=== PATIENT | male | born 1980 | race Caucasian/White ===

== ENCOUNTER 2017-05-26 19:39 | Inpatient (IN) | payer MEDICAID ==
--- NOTE | 2017-05-26 19:53 | EDPHY ---
H & P Stated Complaint: pt c/o pain/redness/swelling in R distal leg, thinks he's had a fever HPI/ROS: HPI CHIEF COMPLAINT: [ ] HISTORY OF PRESENT ILLNESS: [Need 4: Location, Duration, Severity, Quality, Context, Timing Modifying Factors, Associated S&S] Past Medical History: Past Surgical History: Social History: Family History: ROS REVIEW OF SYSTEMS: A comprehensive 10 point review of systems is otherwise negative aside from elements mentioned in the history of present illness. Exam Constitutional triage nursing summary reviewed, vital signs reviewed, awake/ alert. Eyes normal conjunctivae and sclera, EOMI, PERRLA. HENT normal inspection, atraumatic, moist mucus membranes, no epistaxis, neck supple/ no meningismus, no raccoon eyes. Respiratory clear to auscultation bilaterally, normal breath sounds, no respiratory distress, no wheezing. Cardiovascular rate normal, regular rhythm, no murmur, no edema, distal pulses normal. Gastrointestinal soft, non-tender, no rebound, no guarding, normal bowel sounds, no distension, no pulsatile mass. Genitourinary no CVA tenderness. Musculoskeletal no midline vertebral tenderness, full range of motion, no calf swelling, no tenderness of extremities, no meningismus, good pulses, neurovascularly intact. Skin pink, warm, & dry, no rash, skin atraumatic. Neurologic awake, alert and oriented x 3, AAOx3, moves all 4 extremities equally, motor intact, sensory intact, CN II-XII intact, normal cerebellar, normal vision, normal speech. Psychiatric normal mood/affect. Heme/Lymph/Immune no lymphadenopathy. Differential Diagnosis: Medical Decision Making: Re-evaluation: Source: Patient - Medical/Surgical History Hx Asthma: No Hx Chronic Respiratory Disease: No Hx Diabetes: No Hx Cardiac Disease: No Hx Renal Disease: No Hx Cirrhosis: No Hx Alcoholism: No Hx HIV/AIDS: No Hx Splenectomy or Spleen Trauma: No Other PMH: CELLULITIS, OCD, orif RLE, adenoidectomy, nasal surg, tbi - Social History Smoking Status: Never smoked Constitutional: Initial Vital Signs Temperature (C) 38.1 C 05/26/17 19:42 Heart Rate 124 H 05/26/17 19:42 Respiratory Rate 18 05/26/17 19:42 Blood Pressure 118/78 05/26/17 19:42 O2 Sat (%) 93 05/26/17 19:42 O2 Delivery Mode Room Air Allergies/Adverse Reactions: [facility] Allergy (Verified 05/26/17 19:48) Home Medications: Medication Instructions Recorded Latuda 06/07/15 Sertraline HCl 06/07/15 Departure - Departure Referrals: ROMÁN LANDAVERDE [Other] - As per Instructions
[2017-05-26] MEDS ORDERED: VANCOMYCIN HCL/NORMAL SALINE 250 ML IV ONE (20:04)
[2017-05-26] MEDS ORDERED: NS 3,900 ML IV ONE (20:12)
--- NOTE | 2017-05-26 20:12 | EDPHY ---
H & P Stated Complaint: pt c/o pain/redness/swelling in R distal leg, thinks he's had a fever - Medical/Surgical History Hx Asthma: No Hx Chronic Respiratory Disease: No Hx Diabetes: No Hx Cardiac Disease: No Hx Renal Disease: No Hx Cirrhosis: No Hx Alcoholism: No Hx HIV/AIDS: No Hx Splenectomy or Spleen Trauma: No Other PMH: CELLULITIS, OCD, orif RLE, adenoidectomy, nasal surg, tbi - Social History Smoking Status: Never smoked Time Seen by Provider: 05/26/17 19:54 HPI/ROS: CHIEF COMPLAINT: Right pretibial erythema HISTORY OF PRESENT ILLNESS: 37-year-old male arrives via private vehicle complaining of less than 24 hours of new onset right pretibial erythema, concerns over cellulitis. He has a medical history significant for tibial plateau ORIF in 2007 secondary to skiing accident. Starting in 2012 he has developed recurrent episodes of cellulitis to the right pretibial region. He was admitted in 2012 in a hospital in [place] for cellulitis. On 04/23/2017 he had hardware removed from his right tibia and fibula by Dr. Jung Durán, [facility], however notes that there is a single screw still in place.. Tetanus up-to-date He is complaining of subjective fever and flu-like symptoms. He denies: Nausea, vomiting, chest pain, back pain, crepitus, inguinal pain PRIMARY CARE PROVIDER:Dr Michael, [facility] Winston REVIEW OF SYSTEMS: A ten point review of systems was performed and is negative with the exception of the items mentioned in the HPI PAST MEDICAL & SURGICAL HISTORY: 04/23/2017 right pretibial ORIF removal SOCIAL HISTORY: nonsmoker. PHYSICAL EXAM (Prior to examination, patient consented to physical exam, hands were washed and my usual and customary physical exam procedures followed) 1) GENERAL: Well-developed, well-nourished, alert and oriented. Appears to be in no acute distress. breath appears nontoxic 2) HEAD: Normocephalic, atraumatic 3) HEENT: Pupils equal, round, reactive to light bilaterally. Sclera anicteric. Nasopharynx, oropharynx, clear, no lesions. Ears bilaterally with normal tympanic membranes. 4) NECK: Full range of motion, no meningeal signs. 5) LUNGS: Clear auscultation bilaterally, no wheezes, no rhonchi, no retractions. 6) HEART: Regular rate and rhythm, no murmur, no heave, no gallop. 7) ABDOMEN: No guarding, no rebound, no focal tenderness, negative McBurney's, negative Werner's, negative Rovsing's, negative peritoneal sign, 8) MUSCULOSKELETAL: Right lower extremity: Beefy red erythema and induration pretibial region. Multiple surgical scars noted. No crepitus. No inguinal adenopathy. No lymphangitic streaking. Distal DP PT pulses present and brisk. 9) BACK: No CVA tenderness, no midline vertebral tenderness, no fluctuance, no step-off, no obvious trauma, no visual or palpable abnormality. 10) SKIN: No rash, no petechiae. 11) Psychiatric: Patient is oriented X 3, there is no agitation. DIFFERENTIAL DIAGNOSIS: in no particular include but limited to cellulitis, abscess, necrotizing fasciitis, infected hardware (Ronald Cancino) Constitutional: Initial Vital Signs Temperature (C) 38.1 C 05/26/17 19:42 Heart Rate 124 H 05/26/17 19:42 Respiratory Rate 18 05/26/17 19:42 Blood Pressure 118/78 05/26/17 19:42 O2 Sat (%) 93 05/26/17 19:42 O2 Delivery Mode Room Air Allergies/Adverse Reactions: cefaclor [From Ceclor] Allergy (Unknown, Verified 05/26/17 21:03) Rash Home Medications: Medication Instructions Recorded Lurasidone HCl [Latuda] 60 mg PO HS 05/26/17 Sertraline HCl [Zoloft 100mg (*)] 150 mg PO HS 05/26/17 Medical Decision Making ED Course/Re-evaluation: 8:12 p.m.: Discussed case Dr. Joaquin Gibbons in the ER. Plan will be diagnostic studies including ultrasound, imaging, lactate, blood cultures. He has a cephalosporin allergy and notes history of chronic skin infections to this area. He will be started on vancomycin. 8:29 p.m.: Consultation with hospitalist Dr. Irene will admit patient for right pretibial cellulitis. (Ronald Cancino) - Data Points Laboratory Results: Laboratory Results 05/26/17 20:05 05/26/17 20:05 Medications Given: Discontinued Medications Acetaminophen (Tylenol) 1,000 mg PO EDNOW ONE Stop: 05/26/17 20:40 Last Admin: 05/26/17 20:52 Dose: 1,000 mg Vancomycin/Sodium Chloride (Vancomycin 1 Gm (Premix)) 250 mls @ 250 mls/hr IV EDNOW ONE PRN Reason: Protocol Stop: 05/26/17 21:03 Last Admin: 05/26/17 20:33 Dose: 250 mls Sodium Chloride (Ns) 1,000 mls @ 0 mls/hr IV ONCE ONE PRN Reason: Wide Open Stop: 05/26/17 20:14 Last Admin: 05/26/17 20:18 Dose: 1,000 mls Sodium Chloride (Ns) 1,000 mls @ 250 mls/hr IV ONCE ONE Stop: 05/27/17 02:43 Last Admin: 05/26/17 23:23 Dose: 1,000 mls Departure - Departure Disposition: [facility] Inpatient Acute Clinical Impression: Right pretibial cellulitis Condition: Fair
[2017-05-26] MEDS ORDERED: NS 1,000 ML IV ONE ×2 (20:13→22:44)
[2017-05-26 20:25] LABS: % IMMATURE GRANULYOCYTES 0.7 % (0.0-1.1); ABSOLUTE IMMATURE GRANULOCYTES 0.17 10^3/uL (0.00-0.10); ADD DIFF? NO; ADD MORPH? NO; ADD SCAN? NO; ATYPICAL LYMPHOCYTE FLAG 0 (0-99); FRAGMENT RBC FLAG 0 (0-99); HEMATOCRIT 45.5 % (40.0-51.0); HEMOGLOBIN 15.2 g/dL (13.7-17.5); LEFT SHIFT FLG 0 (0-99); LIPEMIA HEMOLYSIS FLAG 80 (0-99); MEAN CELL HEMOGLOBIN 26.7 pg (27.9-34.1); MEAN CELL HEMOGLOBIN CONCENTR. 33.4 g/dL (32.4-36.7); MEAN PLATELET VOLUME 9.8 fL (8.7-11.7); PLATELET CLUMPS FLAG 0 (0-99); PLATELET COUNT 194 10^3/uL (150-400); RED BLOOD CELL COUNT 5.69 10^6/uL (4.40-6.38)
[2017-05-26 20:34] LABS: ANION GAP 14 mEq/L (8-16); BILIRUBIN,TOTAL 0.9 mg/dL (0.1-1.4); CALCIUM 9.6 mg/dL (8.5-10.4); CARBON DIOXIDE 21 mEq/l (22-31); CHLORIDE 98 mEq/L (97-110); CREATININE 1.2 mg/dL (0.7-1.3); GLOMERULAR FILTRATION RATE > 60; GLUCOSE 128 mg/dL (70-100); POTASSIUM 4.3 mEq/L (3.5-5.2); SODIUM 133 mEq/L (134-144)
[2017-05-26 20:35] LABS: INR 1.14 (0.83-1.16); PROTIME(PATIENT) 14.5 SEC (12.0-15.0)
[2017-05-26 20:36] LABS: APTT 28.7 SEC (23.0-38.0)
[2017-05-26] MEDS ORDERED: ACETAMINOPHEN 500 MG TAB PO ONE (20:39)
[2017-05-26] MEDS ORDERED: ONDANSETRON DISINTEGRATING 4 MG TAB PO PRN (22:44)
[2017-05-26] MEDS ORDERED: ONDANSETRON 4 MG/2 ML VIAL IVP PRN (22:44)
[2017-05-26] MEDS: LURASIDONE HCL 20 MG TAB PO SCH (23:29)
[2017-05-26] MEDS: SERTRALINE HCL 100 MG TAB PO SCH (23:30)
[2017-05-27] MEDS: ACETAMINOPHEN 325 MG TAB PO PRN ×2 (00:05→04:02)
--- NOTE | 2017-05-27 01:14 | PDGENHP ---
History and Physical - Chief Complaint Leg redness - History of Present Illness 37 yo M w/ hx of OCD presenting with RLE redness. Patient had a tib/fib fx in 2007 necessitating hardware placement. Over the last few years, he has developed cellulitis of the RLE every 3-6 months. Today he presents with redness , warmth, and pain overlying the right oneill, in the same distribution where his cellulitis typically occurs. His symptoms started on the day of presentation with rapid development of skin changes, fever, and malaise. Due to multiple recurrences, he had the RLE hardware removed at [facility] on . He denies trauma, insect bites, excoriations, and skin picking in the affected leg. He denies hx of immunodeficiency in himself of his family. History Information - Allergies/Home Medication List Allergies/Adverse Reactions: cefaclor [From Ceclor] Allergy (Unknown, Verified 05/26/17 21:03) Rash Home Medications: Lurasidone HCl [Latuda] 60 mg PO HS 05/26/17 [Last Taken 05/25/17] Sertraline HCl [Zoloft 100mg (*)] 150 mg PO HS 05/26/17 [Last Taken 05/25/17] I have personally reviewed and updated: family history, medical history - Past Medical History Additional medical history: OCD, multiple bouts of RLE cellulitis - Surgical History Additional surgical history: R tib/fib hardware removal 04/23/17 - Family History Positive for: CAD Additional family history: Denies family hx of immunodeficiency - Social History Smoking Status: Never smoked Alcohol Use: None Drug Use: None Review of Systems ROS: 10pt was reviewed & negative except for what was stated in HPI & below Physical Exam Temp Pulse Resp BP Pulse Ox 37.6 C 104 H 16 122/71 H 94 05/26/17 23:25 05/26/17 23:25 05/26/17 23:25 05/26/17 23:25 05/26/17 23:25 Constitutional: no apparent distress, not in pain Eyes: PERRL, EOMI Ears, Nose, Mouth, Throat: moist mucous membranes, no oral mucosal ulcers Cardiovascular: regular rate and rhythym, no murmur, rub, or gallop Respiratory: no respiratory distress, clear to auscultation Gastrointestinal: normoactive bowel sounds, soft, non-tender abdomen Skin: warm, erythema (Large area of erythema overlying RLE; well healed surgical incisions noted on several areas of RLE) Musculoskeletal: full muscle strength Neurologic: AAOx3, CN II-XII Intact Psychiatric: interacting appropriately, not anxious Lab Data & Imaging Review 05/26/17 20:05 05/26/17 20:05 WBC 23.30 10^3/uL (3.80-9.50) H 05/26/17 20:05 RBC 5.69 10^6/uL (4.40-6.38) 05/26/17 20:05 Hgb 15.2 g/dL (13.7-17.5) 05/26/17 20:05 Hct 45.5 % (40.0-51.0) 05/26/17 20:05 MCV 80.0 fL (81.5-99.8) L 05/26/17 20:05 MCH 26.7 pg (27.9-34.1) L 05/26/17 20:05 MCHC 33.4 g/dL (32.4-36.7) 05/26/17 20:05 RDW 13.0 % (11.5-15.2) 05/26/17 20:05 Plt Count 194 10^3/uL (150-400) 05/26/17 20:05 MPV 9.8 fL (8.7-11.7) 05/26/17 20:05 Neut % (Auto) 91.9 % (39.3-74.2) H 05/26/17 20:05 Lymph % (Auto) 3.4 % (15.0-45.0) L 05/26/17 20:05 [place] % (Auto) 3.8 % (4.5-13.0) L 05/26/17 20:05 Eos % (Auto) 0.0 % (0.6-7.6) L 05/26/17 20:05 Baso % (Auto) 0.2 % (0.3-1.7) L 05/26/17 20:05 Nucleat RBC Rel Count 0.0 % (0.0-0.2) 05/26/17 20:05 Absolute Neuts (auto) 21.41 10^3/uL (1.70-6.50) H 05/26/17 20:05 Absolute Lymphs (auto) 0.79 10^3/uL (1.00-3.00) L 05/26/17 20:05 Absolute Monos (auto) 0.88 10^3/uL (0.30-0.80) H 05/26/17 20:05 Absolute Eos (auto) 0.00 10^3/uL (0.03-0.40) L 05/26/17 20:05 Absolute Basos (auto) 0.05 10^3/uL (0.02-0.10) 05/26/17 20:05 Absolute Nucleated RBC 0.00 10^3/uL (0-0.01) 05/26/17 20:05 Immature Gran % 0.7 % (0.0-1.1) 05/26/17 20:05 Immature Gran # 0.17 10^3/uL (0.00-0.10) H 05/26/17 20:05 PT 14.5 SEC (12.0-15.0) 05/26/17 20:05 INR 1.14 (0.83-1.16) 05/26/17 20:05 APTT 28.7 SEC (23.0-38.0) 05/26/17 20:05 VBG Lactic Acid 1.8 mmol/L (0.7-2.1) 05/26/17 20:05 Sodium 133 mEq/L (134-144) L 05/26/17 20:05 Potassium 4.3 mEq/L (3.5-5.2) 05/26/17 20:05 Chloride 98 mEq/L (97-110) 05/26/17 20:05 Carbon Dioxide 21 mEq/l (22-31) L 05/26/17 20:05 Anion Gap 14 mEq/L (8-16) 05/26/17 20:05 BUN 19 mg/dL (7-23) 05/26/17 20:05 Creatinine 1.2 mg/dL (0.7-1.3) 05/26/17 20:05 Estimated GFR > 60 05/26/17 20:05 Glucose 128 mg/dL (70-100) H 05/26/17 20:05 Calcium 9.6 mg/dL (8.5-10.4) 05/26/17 20:05 Total Bilirubin 0.9 mg/dL (0.1-1.4) 05/26/17 20:05 Imaging Review: RLE U/S notable for sub-cutaneous fluid collection. XR tib/fib without clear acute pathology. Assessment & Plan Assessment: 37 yo M w/ hx of OCD and multiple bouts of RLE cellulitis again presenting with sepsis 2/2 RLE cellulitis. Plan: 1. Sepsis 2/2 RLE cellulitis - 3/4 SIRS (T 39, WBC 21, HR 120) with clearly infected RLE. Patient had hardware removed at [facility] in April noting multiple prior bouts of similar infections. Per patient, culture from hardware did not grow any organisms. U/S notable for fluid collection, XR without definite acute osseous changes. He denies personal or family hx of immunodeficiency. - Borders of infection marked - Vancomycin IV, IVF PRN; may broaden coverage if not clearly improving - ID Consult placed - MRI RLE ordered to evaluate fluid collection and osseous structures - May need surgical consultation pending results of MRI - Blood cultures ordered 2. OCD - Continue home Latuda and sertraline Diet - NPO pending results of MRI in case he needs surgical intervention Ppx - SQH, can hold dose prior to procedure if necessary Code - Full Dispo - Admit to inpatient noting sepsis and complicated cellulitis
[2017-05-27] MEDS: VANCOMYCIN 1.25 GM in D5W 250 ML IV SCH ×3 (05:33→20:42)
[2017-05-27] MEDS: HEPARIN 5,000 UNIT/0.5 ML SYR SC SCH ×3 (05:39→21:48)
[2017-05-27 06:08] LABS: % IMMATURE GRANULYOCYTES 0.7 % (0.0-1.1); ABSOLUTE IMMATURE GRANULOCYTES 0.09 10^3/uL (0.00-0.10); ADD DIFF? NO; ADD MORPH? NO; ADD SCAN? NO; ATYPICAL LYMPHOCYTE FLAG 0 (0-99); FRAGMENT RBC FLAG 0 (0-99); HEMATOCRIT 39.6 % (40.0-51.0); HEMOGLOBIN 13.1 g/dL (13.7-17.5); LEFT SHIFT FLG 0 (0-99); LIPEMIA HEMOLYSIS FLAG 80 (0-99); MEAN CELL HEMOGLOBIN 26.8 pg (27.9-34.1); MEAN CELL HEMOGLOBIN CONCENTR. 33.1 g/dL (32.4-36.7); MEAN CELL VOLUME 81.1 fL (81.5-99.8); MEAN PLATELET VOLUME 9.9 fL (8.7-11.7); PLATELET CLUMPS FLAG 0 (0-99); PLATELET COUNT 142 10^3/uL (150-400); RED BLOOD CELL COUNT 4.88 10^6/uL (4.40-6.38); RED CELL DISTRIBUTION WIDTH 13.2 % (11.5-15.2)
[2017-05-27 06:25] LABS: ANION GAP 8 mEq/L (8-16); CALCIUM 8.5 mg/dL (8.5-10.4); CARBON DIOXIDE 23 mEq/l (22-31); CHLORIDE 103 mEq/L (97-110); GLOMERULAR FILTRATION RATE > 60; GLUCOSE 105 mg/dL (70-100); SODIUM 134 mEq/L (134-144)
[2017-05-27] MEDS ORDERED: GADOBUTROL 10 ML VIAL IVP ONE (12:27)
[2017-05-27] MEDS: CLINDAMYCIN 600 MG/DEXTROSE 50 ML IV SCH ×2 (15:48→22:45)
--- NOTE | 2017-05-27 16:01 | GCON ---
[f rep st] CONSULTATION INFECTIOUS DISEASE CONSULTATION DATE OF CONSULTATION: 05/27/2017 REFERRING PHYSICIAN: Roberto Escalante MD REASON FOR CONSULTATION: Right lower extremity cellulitis. CHIEF COMPLAINT: Red leg. HISTORY OF PRESENT ILLNESS: This is a 37-year-old, male with a past medical history of OC D and recurrent right lower extremity cellulitis. He developed sudden onset of acute redness involv ing the right lower extremity as of yesterday. He actually was not feeling well since Sunday with s ome fevers, mild chills, and a lot of myalgias. He did not notice that his right leg was red until yesterday evening. He has a history of a tib-fib fracture, status post hardware placement in 2007, and then apparently since then he had frequent bouts of right lower extremity cellulitis. One month ago, he had his hardware removed at [facility]. He tells me that the cultures from t he hardware did not grow any organisms. He was doing well up until yesterday when this developed. He denies having his lower extremities in any hot tubs, spring water, or sun water. He has denied any recent trauma to his lower extremity that he knows of. Patient was put on vancomycin. Blood cu ltures x2 sets were drawn which are pending and patient did have a tib-fib x-ray, which did not show any osseous changes except for diffuse soft tissue swelling. He also had an ultrasound done which was negative for a DVT but did show a linear anterior subcutaneous fluid collection. He just underw ent an MRI which the preliminary results, which I just reviewed with Dr. Jacobsen, shows again jus t a thin linear fluid collection in the anterior superficial collection without any obvious connecti on to bone. Infectious Disease is now consulted for further evaluation and opinion of above. REVIEW OF SYSTEMS: GENERAL: Had some mild fevers and feeling cold. HEAD: Mild headache. EYES: No change in vision. ENT: No sore throat, difficulty swallowing, ear pain, or drainage. CARDIOVAS CULAR: Denies any chest pain or rapid heartbeat. RESPIRATORY: Denies any shortness of breath, cou gh, or sputum production. ABDOMEN: No nausea, vomiting, or abdominal pain. Did have some loose st ools today, totaling 3 so far. no dysuria or hematuria. MUSCULOSKELETAL: Some myalgias. Denie s any joint pain. SKIN: As above. Rest of 10-point review of systems essentially negative except for above. PAST MEDICAL HISTORY: Significant for OCD, multiple bouts of right lower extremity cellulitis, obst ructive sleep apnea. PAST SURGICAL HISTORY: Significant for right hip fracture status post hardware placement with subse quent removal on April 23, 2017, correction of his nasal septum, nasal turbinates surgery, wisdom teet h removed. MEDICATIONS: As per DEC. ALLERGIES: Cefaclor which gives him a rash which he had as a kid. He can't recall if he has ever b een on any antibiotic called Keflex. FAMILY HISTORY: Significant for coronary artery disease. SOCIAL HISTORY: Denies smoking. Does not drink alcohol. Currently lives with his parents. PHYSICAL EXAMINATION: VITAL SIGNS: Temperature current 37.1, pulse is 93, blood pressure 131/68, r espiratory rate is 20, saturation 92% on room air. GENERAL: Patient is resting in bed in no acute respiratory distress. Awake, alert, oriented x3. HEENT. Head is normocephalic, atraumatic. Pupil s are equal, round, reactive to light. No conjunctival petechiae. Oropharynx is clear. There is n o posterior erythema or thrush. CARDIOVASCULAR: S1, S2. Regular rate and rhythm. No murmurs appr eciated. RESPIRATORY: Clear to auscultate bilaterally. No rhonchi or rales appreciated. ABDOMEN: Positive bowel sounds in all quadrants. Soft, nontender, nondistended. EXTREMITIES: Right lower extremity edema with some mild increase in swelling in the proximal leg. Diffuse erythema noted in volving the right leg with extension outside the demarcated lines. Previous suture sites noted wher e there is some dry skin noted around that as well as some scabbing. Left lower extremity is fairly unremarkable. LABORATORY DATA: White blood cell count is 12.6, down from 23.3, hemoglobin 13.1, platelets are 142 , neutrophils 82%. Chemistry: Sodium 134, potassium 4.0, chloride 103, bicarb is 23, BUN is 16, cr eatinine is 1.0, venous lactic acid 1.8. Blood cultures x2 sets are pending. Imaging results have all been reviewed by me and are stated above. ASSESSMENT: 1. Right lower extremity cellulitis with progression of the demarcated lines. 2. Leukocytosis. PLAN: At this point in time, patient is on vancomycin therapy, but with extension of erythema outs sandoval demarcated lines. We will add clindamycin for additional antitoxin properties in the case this is more of a strep given process. Reviewed MRI images in person with Dr. Jacobsen. There is a sm all linear fluid collection that is well organized. Could represent early abscess. It is very tiny , so it may not be ready for aspiration at this point. Recommend elevating the lower extremity. Di scussed about the importance of that along with skin care. We will start . If he does no t continue to improve, we will consider broadening therapy. Plan of care was discussed in detail wi th the patient. Care coordinated with his nurse. Recheck labs in the morning. Follow blood cultur es. Thank you very much for the opportunity to care for your patient in consultation. /[id number]/MODL
--- NOTE | 2017-05-27 19:49 | HOSPPROG ---
Hospitalist Progress Note Assessment/Plan: The patient is a male with PMH cellulitis of right lower extremity, history of infected hardware for tib-fib fracture who was admitted for recurrent right lower extremity cellulitis. ASSESSMENT/PLAN: Right lower extremity cellulitis, recurrent Sepsis, resolving History of infected hardware of RLE, removed Pretibial fluid - ?early abscess OCD Obesity Thrombocytopenia, mild Hyperglycemia, mild -IV antibiotics. -Infectious Disease on case - recs appreciated. -IV fluids. -follow labs. Blood cultures pending. VTE prophylaxis: Heparin. Code Status: Full. Status: inpt for > 2 midnight stay. Disposition: med surg ____ SUBJECTIVE: Today the patient feels okay. Still has rash of right lower extremity, not in much pain. OBJECTIVE: Physical Exam: General: The patient is an obese male who is alert and in no acute distress. HEENT: normocephalic, extraocular movements intact, conjunctivae clear. Mucous membranes moist. Neck: trachea midline, no visible masses. CV: Normal peripheral perfusion in all extremities. Resp: unlabored effort of breathing. Abd: soft and nondistended. Musculoskeletal: Normal muscle tone/bulk. Neuro: cranial nerves II XII grossly intact. Intact gross motor and sensory function. Psych: Appropriate mood and appropriate affect. Skin: No pallor. +erythematous rash which is greater than demarcation on right lower extremity, extending to posterior leg as well. Heme/lymph: +nonpitting peripheral edema at right lower extremity. Labs/Imaging/Other Tests: Personally reviewed/interpreted. MRI-no osteomyelitis of right lower extremity. Small pretibial fluid collection. Tib-fib x-ray-no osteomyelitis. This patient is new to me. Reviewed patient's chart/records for this visit. Objective: Vital Signs Temp Pulse Resp BP Pulse Ox 37.7 C 88 16 119/69 94 05/27/17 15:20 05/27/17 15:20 05/27/17 15:20 05/27/17 15:20 05/27/17 15:20 Laboratory Results 05/27/17 05:27 05/27/17 05:27 05/26/17 05/27/17 05/28/17 05:59 05:59 05:59 Output Total 550 800 Balance -550 -800 PT 14.5 SEC (12.0-15.0) 05/26/17 20:05 INR 1.14 (0.83-1.16) 05/26/17 20:05 ICD10 Worksheet Patient Problems: Problems Problem Status Onset Cellulitis of right anterior lower leg Acute - ICD10 Problem Qualifiers (1) Cellulitis of right anterior lower leg
[2017-05-27] MEDS ORDERED: NS 1,000 ML IV SCH (20:00)
[2017-05-27] MEDS: LURASIDONE HCL 20 MG TAB PO SCH (20:42)
[2017-05-27] MEDS: SERTRALINE HCL 100 MG TAB PO SCH (20:42)
[2017-05-28] MEDS: VANCOMYCIN 1.25 GM in D5W 250 ML IV SCH ×3 (04:40→20:36)
[2017-05-28 05:42] LABS: % IMMATURE GRANULYOCYTES 0.5 % (0.0-1.1); ABSOLUTE IMMATURE GRANULOCYTES 0.04 10^3/uL (0.00-0.10); ADD DIFF? NO; ADD MORPH? NO; ADD SCAN? NO; ATYPICAL LYMPHOCYTE FLAG 0 (0-99); FRAGMENT RBC FLAG 0 (0-99); HEMATOCRIT 41.2 % (40.0-51.0); HEMOGLOBIN 13.4 g/dL (13.7-17.5); LEFT SHIFT FLG 0 (0-99); LIPEMIA HEMOLYSIS FLAG 80 (0-99); MEAN CELL HEMOGLOBIN 26.5 pg (27.9-34.1); MEAN CELL HEMOGLOBIN CONCENTR. 32.5 g/dL (32.4-36.7); MEAN CELL VOLUME 81.6 fL (81.5-99.8); MEAN PLATELET VOLUME 9.9 fL (8.7-11.7); PLATELET CLUMPS FLAG 0 (0-99); PLATELET COUNT 138 10^3/uL (150-400); RED BLOOD CELL COUNT 5.05 10^6/uL (4.40-6.38); RED CELL DISTRIBUTION WIDTH 13.3 % (11.5-15.2)
[2017-05-28 05:54] LABS: ANION GAP 9 mEq/L (8-16); CALCIUM 8.4 mg/dL (8.5-10.4); CARBON DIOXIDE 22 mEq/l (22-31); CHLORIDE 107 mEq/L (97-110); GLOMERULAR FILTRATION RATE > 60; GLUCOSE 116 mg/dL (70-100); MAGNESIUM 2.2 mg/dL (1.6-2.3); SODIUM 138 mEq/L (134-144)
[2017-05-28] MEDS: HEPARIN 5,000 UNIT/0.5 ML SYR SC SCH ×3 (06:14→21:58)
[2017-05-28] MEDS: CLINDAMYCIN 600 MG/DEXTROSE 50 ML IV SCH ×3 (06:14→22:58)
--- NOTE | 2017-05-28 12:30 | PCMIDPN ---
Assessment/Plan: Assessment/Plan: 1. RLE cellulitis: - recent HW removed on 04/2017. hx of multiple bouts of cellulitis prior to that - Currently on Vanco + clinda for now. -Mild improvment. -Blood cx ngtd -Reviewed MRI personally with radiology yesterday. small linear fluid collection : post surgical changes vs early abscess. too small to aspirate -Contineu withe LE elevation and current treatment for now. -Likely d/c clinda soon. 2. Cefaclor allergy: -Rash. Meds VAnco 1.25gm q8-05/26/17 clinda 600mg q8- 05/27/17 Subjective: afebrile. Still with erythema involving majority of RLE. not worse than yestrday. Denies sob, abd pain , diarrhea. Objective: Vital Signs Temp Pulse Resp BP Pulse Ox 36.7 C 81 18 133/74 H 95 05/28/17 11:34 05/28/17 11:34 05/28/17 11:34 05/28/17 11:34 05/28/17 11:34 Laboratory Results 05/28/17 05:22 05/28/17 05:22 05/27/17 05/28/17 05/29/17 05:59 05:59 05:59 Output Total 550 1400 Balance -550 -1400 - Physical Exam General Appearance: alert, no apparent distress Respiratory: lungs clear Cardiac/Chest: regular rate, rhythm Extremities: swelling Abdomen: normal bowel sounds, non-tender, soft, No distended Skin: erythema (RLE nearly entire leg involved with note extension outside original demarcated lines. no worse than yesterday and posisbly a little developer architect in color comparatively. warmth. mild tenderness on anterior leg) ICD10 Worksheet Patient Problems: Problems Problem Status Onset Cellulitis of right anterior lower leg Acute
--- NOTE | 2017-05-28 17:09 | HOSPPROG ---
Hospitalist Progress Note Assessment/Plan: Assessment: 37 yo M p/w sepsis and cellulitis Plan: # Right lower extremity cellulitis, recurrent. Evolving today into posterior calf, improving on anterior calf - d/w Dr. Choe, we both agree that ongoing IV abx necessary, cont Vanco/Clinda - MRI w/ some pretibial fluid that is too small to warrant surgical drainage, plan to re-US to see if organizing - BCx pending - no DVT on US, continue to elevate # Sepsis. POA, cont monitor CBC/fever curve (last febrile 39C @ 8/6 1 a.m.) - infected hardware of RLE, removed # Hyponatremia. Acute, 2/2 hypovolemia in setting of infxn - cont NS Diet. Regular PPx. High risk, lovenox 40 Code. Full Dispo. ADD uncertain, clinically unresolved Subjective: patient w/ ongoing pain in RLE, elevated Objective: Vital Signs Temp Pulse Resp BP Pulse Ox 36.7 C 81 18 133/74 H 95 05/28/17 11:34 05/28/17 11:34 05/28/17 11:34 05/28/17 11:34 05/28/17 11:34 Laboratory Results 05/28/17 05:22 05/28/17 05:22 05/27/17 05/28/17 05/29/17 05:59 05:59 05:59 Output Total 550 1400 Balance -550 -1400 PT 14.5 SEC (12.0-15.0) 05/26/17 20:05 INR 1.14 (0.83-1.16) 05/26/17 20:05 - Physical Exam Constitutional: no apparent distress, appears nourished, obese, uncomfortable Cardiovascular: edema (1+ RLE), No systolic murmur, No irregularly irregular, No tachycardia Respiratory: no respiratory distress, no rales or rhonchi, clear to auscultation Gastrointestinal: normoactive bowel sounds, soft, non-tender abdomen, no palpable masses Skin: other (confluent erythema posterior aspect R calf, receeding from margins on anterior aspect, some ulcerations on the prior suture sites, some dryness to skin) Neurologic: AAOx3, sensation intact bilaterally Psychiatric: interacting appropriately, not anxious, not encephalopathic, thought process linear ICD10 Worksheet Patient Problems: Problems Problem Status Onset Cellulitis of right anterior lower leg Acute
[2017-05-28] MEDS: LURASIDONE HCL 20 MG TAB PO SCH (20:36)
[2017-05-28] MEDS: SERTRALINE HCL 100 MG TAB PO SCH (20:36)
[2017-05-29] MEDS: VANCOMYCIN 1.25 GM in D5W 250 ML IV SCH ×3 (04:38→21:08)
[2017-05-29 05:43] LABS: % IMMATURE GRANULYOCYTES 1.1 % (0.0-1.1); ABSOLUTE IMMATURE GRANULOCYTES 0.07 10^3/uL (0.00-0.10); ADD DIFF? NO; ADD MORPH? NO; ADD SCAN? NO; ATYPICAL LYMPHOCYTE FLAG 0 (0-99); FRAGMENT RBC FLAG 0 (0-99); HEMATOCRIT 44.5 % (40.0-51.0); HEMOGLOBIN 14.3 g/dL (13.7-17.5); LEFT SHIFT FLG 0 (0-99); LIPEMIA HEMOLYSIS FLAG 80 (0-99); MEAN CELL HEMOGLOBIN 26.6 pg (27.9-34.1); MEAN CELL HEMOGLOBIN CONCENTR. 32.1 g/dL (32.4-36.7); MEAN CELL VOLUME 82.9 fL (81.5-99.8); MEAN PLATELET VOLUME 10.2 fL (8.7-11.7); PLATELET CLUMPS FLAG 10 (0-99); PLATELET COUNT 160 10^3/uL (150-400); RED BLOOD CELL COUNT 5.37 10^6/uL (4.40-6.38); RED CELL DISTRIBUTION WIDTH 13.3 % (11.5-15.2)
[2017-05-29 05:51] LABS: ANION GAP 12 mEq/L (8-16); CALCIUM 8.9 mg/dL (8.5-10.4); CARBON DIOXIDE 21 mEq/l (22-31); CHLORIDE 107 mEq/L (97-110); CREATININE 0.9 mg/dL (0.7-1.3); GLOMERULAR FILTRATION RATE > 60; GLUCOSE 100 mg/dL (70-100); POTASSIUM 4.2 mEq/L (3.5-5.2); SODIUM 140 mEq/L (134-144)
[2017-05-29] MEDS: HEPARIN 5,000 UNIT/0.5 ML SYR SC SCH ×3 (06:25→21:15)
[2017-05-29] MEDS: CLINDAMYCIN 600 MG/DEXTROSE 50 ML IV SCH ×3 (06:25→23:13)
--- NOTE | 2017-05-29 09:51 | PCMIDPN ---
Assessment/Plan: Assessment/Plan: 1. RLE cellulitis: - recent HW removed on 04/2017. hx of multiple bouts of cellulitis prior to that - Currently on Vanco + clinda for now. -MOre improvment today comparatively. -Blood cx ngtd -Reviewed MRI personally with radiology. small linear fluid collection: post surgical changes vs early abscess. too small to aspirate -Contineu with LE elevation and current treatment for now. -Likely d/c clinda soon. -Still needs IV antibiotics. Not ready to change to orals yet. Hopefully in 1-2 days. - care coordinated with hospitalist team. 2. Cefaclor allergy: -Rash. Meds VAnco 1.25gm q8-05/26/17 clinda 600mg q8- 05/27/17 Subjective: afebrile. feels better today. less pain. swelling continues to go down. less red today. more brownish look. some clearing today. less tender. mild loose stools. no abd pain or cramping. denies sob. Objective: Vital Signs Temp Pulse Resp BP Pulse Ox 36.3 C 65 20 111/67 94 05/29/17 07:54 05/29/17 07:54 05/29/17 07:54 05/29/17 07:54 05/29/17 07:54 Laboratory Results 05/29/17 05:29 05/29/17 05:29 05/28/17 05/29/17 05/30/17 05:59 05:59 05:59 Intake Total 670 Output Total 1400 Balance -1400 670 - Physical Exam General Appearance: alert, no apparent distress Respiratory: lungs clear Cardiac/Chest: regular rate, rhythm Extremities: swelling (improved RLE) Abdomen: normal bowel sounds, non-tender, soft, No distended Skin: erythema (RLE: finally showing some improvment. looking more brownish red than acute erythema. medially at ankle and medial leg has more concentrated erythema and mild bruising changes. indurated here and at mid leg anteriorly. less tender overall. less warm. less swollen as well. ) ICD10 Worksheet Patient Problems: Problems Problem Status Onset Cellulitis of right anterior lower leg Acute
--- NOTE | 2017-05-29 16:21 | HOSPPROG ---
Hospitalist Progress Note Assessment/Plan: Assessment: 37 yo M p/w sepsis and cellulitis Plan: # Right lower extremity cellulitis, recurrent. Evolving today into posterior calf, improving on anterior calf - d/w Dr. Choe, we both agree that ongoing IV abx necessary given the ongoing induration/erythema, cont Vanco/Clinda - MRI w/ some pretibial fluid that is too small to warrant surgical drainage, plan to re-US to see if organizing (probably tomorrow if anterior surface becomes more fluctuant) - BCx pending - no DVT on US, continue to elevate # Sepsis. POA, cont monitor CBC/fever curve (last febrile 39C @ 8/6 1 a.m.) - infected hardware of RLE, removed # Hyponatremia. Acute, 2/2 hypovolemia in setting of infxn - cont NS Diet. Regular PPx. High risk, lovenox 40 Code. Full Dispo. ADD uncertain, clinically unresolved Subjective: reports firmness on medial aspect of ankle Objective: Vital Signs Temp Pulse Resp BP Pulse Ox 36.3 C 66 20 118/64 94 05/29/17 15:49 05/29/17 15:49 05/29/17 15:49 05/29/17 15:49 05/29/17 15:49 Laboratory Results 05/29/17 05:29 05/29/17 05:29 05/28/17 05/29/17 05/30/17 05:59 05:59 05:59 Intake Total 670 Output Total 1400 Balance -1400 670 PT 14.5 SEC (12.0-15.0) 05/26/17 20:05 INR 1.14 (0.83-1.16) 05/26/17 20:05 - Physical Exam Constitutional: no apparent distress, appears nourished, not in pain Cardiovascular: regular rate and rhythym, no murmur, rub, or gallop Respiratory: no respiratory distress, no rales or rhonchi, clear to auscultation Gastrointestinal: normoactive bowel sounds, soft, non-tender abdomen, no palpable masses Skin: other (induration along medial ankle w/ tenderness, blanching erythema anterior surface w/ possible fluctuance, ecchymoses w/ minimal blanching posterior calf) Musculoskeletal: other (full ROM R ankle and knee w/o pain) Neurologic: AAOx3, sensation intact bilaterally Psychiatric: interacting appropriately, not anxious, not encephalopathic, thought process linear ICD10 Worksheet Patient Problems: Problems Problem Status Onset Cellulitis of right anterior lower leg Acute
[2017-05-29] MEDS: SERTRALINE HCL 100 MG TAB PO SCH (21:06)
[2017-05-29] MEDS: LURASIDONE HCL 20 MG TAB PO SCH (21:06)
[2017-05-30] MEDS: HEPARIN 5,000 UNIT/0.5 ML SYR SC SCH ×3 (05:00→21:28)
[2017-05-30] MEDS: VANCOMYCIN 1.25 GM in D5W 250 ML IV SCH ×3 (05:00→20:59)
[2017-05-30 05:57] LABS: % IMMATURE GRANULYOCYTES 1.1 % (0.0-1.1); ABSOLUTE IMMATURE GRANULOCYTES 0.08 10^3/uL (0.00-0.10); ADD DIFF? NO; ADD MORPH? NO; ADD SCAN? NO; ATYPICAL LYMPHOCYTE FLAG 20 (0-99); FRAGMENT RBC FLAG 0 (0-99); HEMATOCRIT 45.1 % (40.0-51.0); HEMOGLOBIN 14.6 g/dL (13.7-17.5); LEFT SHIFT FLG 10 (0-99); LIPEMIA HEMOLYSIS FLAG 80 (0-99); MEAN CELL HEMOGLOBIN 26.2 pg (27.9-34.1); MEAN CELL HEMOGLOBIN CONCENTR. 32.4 g/dL (32.4-36.7); MEAN CELL VOLUME 80.8 fL (81.5-99.8); PLATELET CLUMPS FLAG 0 (0-99); PLATELET COUNT 191 10^3/uL (150-400); RED BLOOD CELL COUNT 5.58 10^6/uL (4.40-6.38)
[2017-05-30 06:08] LABS: ANION GAP 11 mEq/L (8-16); CARBON DIOXIDE 23 mEq/l (22-31); CHLORIDE 106 mEq/L (97-110); CREATININE 0.9 mg/dL (0.7-1.3); GLOMERULAR FILTRATION RATE > 60; GLUCOSE 106 mg/dL (70-100); POTASSIUM 4.3 mEq/L (3.5-5.2); SODIUM 140 mEq/L (134-144)
[2017-05-30] MEDS: CLINDAMYCIN 600 MG/DEXTROSE 50 ML IV SCH ×2 (06:42→15:01)
--- NOTE | 2017-05-30 14:39 | PCMIDPN ---
Assessment/Plan: # RLE cellulitis - significant improvement by report --dc clindamycin IV --repeat US to follow up on small linear abscess --hopeful for dc tomorrow on PO antibiotics --continue vancomycin Cr 0.9, vanco trough a couple days ago okay for soft tissue infection # Tinea Pedis L>R : apply miconazole cream # Allergy to cefaclor: rash Meds VAnco 1.25gm q8-05/26/17, #4 clinda 600mg q8- 05/27/17, #[address] Armendariz Subjective: patient reports redness 30% improved compared to yesterday Objective: Vital Signs Temp Pulse Resp BP Pulse Ox 36.8 C 60 16 111/61 93 05/30/17 08:00 05/30/17 08:00 05/30/17 08:00 05/30/17 08:00 05/30/17 08:00 Laboratory Results 05/30/17 05:40 05/30/17 05:40 05/29/17 05/30/17 05/31/17 05:59 05:59 05:59 Intake Total 670 Balance 670 - Physical Exam General Appearance: alert, no apparent distress EENT: normal ENT inspection Respiratory: lungs clear, No accessory muscle use Cardiac/Chest: regular rate, rhythm, No systolic murmur Extremities: swelling (mild RLE), erythema (faint warmth and erythema R anterior tibia and posterior ankle, no fluctance. RLE surgical scars in various stages of healing, no drainage), No calf tenderness Abdomen: non-tender, soft Skin: warm/dry, diaphoresis Neuro/Psych: alert, normal mood/affect, oriented x 3 - Time Spent With Patient Time Spent with Patient: greater than 35 minutes (reviewed pathogenesis of skin infections, prevention methods) Time Spent with Patient: Greater than 35 minutes spent on this patients care, greater than 50% of time spent counseling, educating, and coordinating care regarding the above mentioned plan. ICD10 Worksheet Patient Problems: Problems Problem Status Onset Cellulitis of right anterior lower leg Acute
[2017-05-30] MEDS ORDERED: CLINDAMYCIN 600 MG/DEXTROSE 50 ML IV ONE (15:00)
[2017-05-30] MEDS ORDERED: MICONAZOLE NITRATE 15 GM CRTUBE TP SCH (15:00)
[2017-05-30] MEDS: MICONAZOLE NITRATE 28 GM CRTUBE TP SCH ×2 (15:15→21:08)
--- NOTE | 2017-05-30 16:32 | HOSPPROG ---
Hospitalist Progress Note Assessment/Plan: Assessment: 37 yo M p/w sepsis and cellulitis Plan: # Right lower extremity cellulitis, recurrent. Indurated area remains active along medial ankle, mildly fluctuant on anterior oneill - d/w Dr. Salomon, we will get US to r/o drainable fluid collection - DC clinda, cont Vanco, gauge response over next 24hrs - counseled patient about elevating leg, wearing compression stockings, moisturizing affected area # Sepsis. POA, cont monitor CBC/fever curve (last febrile 39C @ 8/6 1 a.m.) - infected hardware of RLE, removed # Hyponatremia. Acute, 2/2 hypovolemia in setting of infxn - stop IVF Diet. Regular PPx. High risk, lovenox 40 Code. Full Dispo. ADD 05/31, requiring additional 24hrs IV Abx for unresolved area of infxn Subjective: Counseled patient extensively regarding lower extremity edema management Objective: Vital Signs Temp Pulse Resp BP Pulse Ox 36.5 C 69 18 132/65 H 96 05/30/17 16:00 05/30/17 16:00 05/30/17 16:00 05/30/17 16:00 05/30/17 16:00 Laboratory Results 05/30/17 05:40 05/30/17 05:40 05/29/17 05/30/17 05/31/17 05:59 05:59 05:59 Intake Total 670 Balance 670 PT 14.5 SEC (12.0-15.0) 05/26/17 20:05 INR 1.14 (0.83-1.16) 05/26/17 20:05 - Time Spent With Patient Time Spent with Patient: greater than 35 minutes Time Spent with Patient: Greater than 35 minutes spent on this patients care, greater than 50% of time spent counseling, educating, and coordinating care regarding the above mentioned plan. - Physical Exam Constitutional: no apparent distress, not in pain, No uncomfortable Skin: other (Indurated patch medial right ankle, fluctuant area anterior right oneill, ecchymotic area posterior right oneill, dried skin at sutures locations with mild ulceration) ICD10 Worksheet Patient Problems: Problems Problem Status Onset Cellulitis of right anterior lower leg Acute
[2017-05-30] MEDS: LURASIDONE HCL 20 MG TAB PO SCH (20:56)
[2017-05-30] MEDS: SERTRALINE HCL 100 MG TAB PO SCH (20:57)
[2017-05-31] MEDS: VANCOMYCIN 1.25 GM in D5W 250 ML IV SCH ×2 (04:29→12:38)
[2017-05-31 05:28] LABS: % IMMATURE GRANULYOCYTES 2.2 % (0.0-1.1); ABSOLUTE IMMATURE GRANULOCYTES 0.16 10^3/uL (0.00-0.10); ADD DIFF? NO; ADD MORPH? NO; ADD SCAN? NO; ATYPICAL LYMPHOCYTE FLAG 20 (0-99); FRAGMENT RBC FLAG 0 (0-99); HEMATOCRIT 45.7 % (40.0-51.0); LEFT SHIFT FLG 20 (0-99); LIPEMIA HEMOLYSIS FLAG 80 (0-99); MEAN CELL HEMOGLOBIN 26.7 pg (27.9-34.1); MEAN CELL HEMOGLOBIN CONCENTR. 32.8 g/dL (32.4-36.7); MEAN CELL VOLUME 81.5 fL (81.5-99.8); MEAN PLATELET VOLUME 9.9 fL (8.7-11.7); PLATELET CLUMPS FLAG 0 (0-99); PLATELET COUNT 196 10^3/uL (150-400); RED BLOOD CELL COUNT 5.61 10^6/uL (4.40-6.38); RED CELL DISTRIBUTION WIDTH 12.9 % (11.5-15.2)
[2017-05-31 05:41] LABS: ANION GAP 13 mEq/L (8-16); CALCIUM 9.1 mg/dL (8.5-10.4); CARBON DIOXIDE 22 mEq/l (22-31); CHLORIDE 106 mEq/L (97-110); CREATININE 0.9 mg/dL (0.7-1.3); GLOMERULAR FILTRATION RATE > 60; GLUCOSE 98 mg/dL (70-100); POTASSIUM 4.4 mEq/L (3.5-5.2); SODIUM 141 mEq/L (134-144)
[2017-05-31] MEDS: HEPARIN 5,000 UNIT/0.5 ML SYR SC SCH ×2 (06:17→14:02)
[2017-05-31 08:03] VITALS: RESP 20
[2017-05-31] MEDS: MICONAZOLE NITRATE 28 GM CRTUBE TP SCH (09:13)
[2017-05-31 15:49] VITALS: BP 128/71; PULSE 72; TEMP 97.3; O2SAT 95
--- NOTE | 2017-05-31 16:35 | PDDCSUM ---
Discharge Summary Discharge Summary: DISCHARGE SUMMARY FOLLOW-UP ITEMS: Outpatient infectious disease follow-up DATE OF ADMISSION: 05/26/2017 DATE OF DISCHARGE: 05/31/2017 DISCHARGE DIAGNOSES: 1. Recurrent right lower extremity cellulitis 2. Sepsis present on admission 3. Acute hyponatremia CONSULTATIONS: Infectious Disease PROCEDURES / IMAGING: MRI of right lower extremity demonstrating small area of fluid collection, non drainable; ultrasound of right lower extremity demonstrating no increase in size in tiny fluid collection, not drainable CHIEF COMPLAINT: Acute lower extremity erythema edema and pain SUBJECTIVE: Patient reports pain is significantly improved edema is improving PHYSICAL EXAM ON DISCHARGE: Systolic blood pressure is 110, heart rate 60, afebrile overnight, satting well on room air erythema has faded and evolved into ecchymoses along the posterior right calf, indurated area medial to the right ankle is less tense, less erythematous, small areas of scabbing at the previous suture sites, majority of erythema has failed, no fluctuance on the anterior aspect of the right calf LABS ON DISCHARGE: White blood count 7300, hemoglobin 15, creatinine 0.9, potassium 4.4, serum sodium 141 HOSPITAL COURSE BY PROBLEM: 1. Recurrent right lower extremity cellulitis. Evidenced by erythema, induration, mild fluctuance, in area where he had previous hardware, previous sutures. He has recently had hardware removal for source control. His erythema is significantly improving with IV antibiotics. Lower extremity imaging demonstrated no drainable fluid collection. Infectious Disease recommended ongoing outpatient oral antibiotics and Infectious Disease follow- up. He received a dosage prior to discharge to ensure no allergic reaction. We provided the patient with recommendations regarding was rising the affected area to reduce dry skin and ulcerations, as well as compression stockings to reduce lower extremity edema. 2. Sepsis present on admission. Evidenced by autonomic dysregulation in the setting of infection, validated by ICD S-2 criteria including significant leukocytosis and a white blood cell count of 20,300, significant tachycardia, objective fever, in the setting of clear source of infection. Patient required empiric IV antibiotics and IV fluids for stabilization. His leukocytosis significantly improved and his vital signs stabilized. 3. Acute hyponatremia. Secondary to hypovolemia in the setting of infection, received IV fluids, stabilized. DISCHARGE MEDICATIONS: Please see official discharge medication reconciliation sheet in chart , Augmentin 875mg bid x 10 days. DISCHARGE INSTRUCTIONS: Please follow up in the Infectious Disease Clinic prior to discontinuing antibiotics. Please use compression stockings and moisturizer. TIME SPENT: Greater than 30 minutes were spent on direct patient care, as well as discharge planning and preparation.
[2017-05-31] MEDS ORDERED: AMOXICILLIN/CLAVULANATE POT 875/125 MG TAB PO ONE (17:06)
== END 2017-05-31 18:02 | disposition home or self-care (01) | DRG 872 ==
LOC: F3E 21:20 → OBSVTOIN 22:44
PROVIDERS: ADMIT Internal Medicine; ATTEND Student in an Organized Health Care Education/Training Program
DX: A41.9 Sepsis, unspecified organism (principal); L03.115 Cellulitis of right lower limb; E87.1 Hypo-osmolality and hyponatremia; F42.9 Obsessive-compulsive disorder, unspecified; E66.9 Obesity, unspecified
CPT/HCPCS: 96365; A9585; J3370

== ENCOUNTER 2018-09-25 14:42 | Emergency (ER) | payer MEDICAID ==
[2018-09-25 14:48] VITALS: BP 145/82
--- NOTE | 2018-09-25 14:54 | EDPHY ---
H & P Stated Complaint: Hit head on wood corner today while painting, lac Time Seen by Provider: 09/25/18 14:54 HPI/ROS: HPI CHIEF COMPLAINT: Head laceration. HISTORY OF PRESENT ILLNESS: Very pleasant 38-year-old male, otherwise healthy, he is unsure of his tetanus shot is up-to-date, presents emergency room with a scalp laceration. Patient reports that he was painting and bent over he stood up and hit the top of his head on a corner of a cabinet. He sustained a 3 cm laceration. He denies any headache or neck pain, denies LOC, denies passing out. Decided come the emergency room as he could not get the bleeding to stop. Past Medical History: Denies significant medical history Past Surgical History: Denies significant surgical history Social History: Denies drugs alcohol tobacco. Works at [employer]. Family History: Noncontributory. ROS REVIEW OF SYSTEMS: 10 Systems were reviewed and negative with the exception of the elements mentioned in the history of present illness. Exam Constitutional triage nursing summary reviewed, vital signs reviewed, awake/ alert. Eyes normal conjunctivae and sclera, EOMI, PERRLA. HENT head/neck: 3CM scalp laceration, midline of the scalp, no significant hematoma, no crepitus, otherwise atraumatic head and neck exam, normal inspection, atraumatic, moist mucus membranes, no epistaxis, neck supple/ no meningismus, no raccoon eyes. Respiratory clear to auscultation bilaterally, normal breath sounds, no respiratory distress, no wheezing. Cardiovascular rate normal, regular rhythm, no murmur, no edema, distal pulses normal. Gastrointestinal soft, non-tender, no rebound, no guarding, normal bowel sounds, no distension, no pulsatile mass. Genitourinary no CVA tenderness. Musculoskeletal no midline vertebral tenderness, full range of motion, no calf swelling, no tenderness of extremities, no meningismus, good pulses, neurovascularly intact. Skin pink, warm, & dry, no rash, skin atraumatic. Neurologic awake, alert and oriented x 3, AAOx3, moves all 4 extremities equally, motor intact, sensory intact, CN II-XII intact, normal cerebellar, normal vision, normal speech. Psychiatric normal mood/affect. Heme/Lymph/Immune no lymphadenopathy. Differential Diagnosis: Includes but is not limited to in a particular order need for tetanus shot, need for wound care possible miladys Medical Decision Making: Plan for this patient clean wound, update tetanus, will place miladys if need be. Re-evaluation: Laceration Repair Procedure: Verbal Consent was obtained, Under sterile conditions, 3CM SCALP Laceration The wound was copiously irrigated with sterile fluid, the wound was explored for foreign bodies there were none visualized, the wound was explored with a sterile glove to the base. There are no deep structures involved, including no arterial injury. ONE STAPLE were placed in this patient's laceration. He had good close approximation of the wound edges. He Tolerated this well. Patient understands have miladys removed in 7 days. Return emergency room if worsening symptoms questions or concerns. Watch for infection. Tetanus shot updated. Wound was cleaned copiously and irrigated. Source: Patient - Personal History Current Tetanus/Diphtheria Vaccine: Unsure Current Tetanus Diphtheria and Acellular Pertussis (TDAP): Unsure - Medical/Surgical History Hx Asthma: No Hx Chronic Respiratory Disease: No Hx Diabetes: No Hx Cardiac Disease: No Hx Renal Disease: No Hx Cirrhosis: No Hx Alcoholism: No Hx HIV/AIDS: No Hx Splenectomy or Spleen Trauma: No Other PMH: R leg surgeries, adenoidectomy. depression - Social History Smoking Status: Never smoked Constitutional: Initial Vital Signs Temperature (C) 36.7 C 09/25/18 14:46 Heart Rate 88 09/25/18 14:46 Respiratory Rate 16 09/25/18 14:46 Blood Pressure 145/82 H 09/25/18 14:46 O2 Sat (%) 97 09/25/18 14:46 O2 Delivery Mode Room Air Allergies/Adverse Reactions: cefaclor [From [facility]] Allergy (Unknown, Verified 05/26/17 21:03) Rash Home Medications: Medication Instructions Recorded Latuda 09/25/18 Sertraline HCl 09/25/18 Medical Decision Making - Data Points Medications Given: Discontinued Medications Diphtheria/Tetanus/Acell Pertussis (Boostrix) 0.5 ml IM .ONCE ONE Stop: 09/25/18 14:59 Last Admin: 09/25/18 15:11 Dose: 0.5 ml Departure - Departure Disposition: Home, Routine, Self-Care Clinical Impression: Scalp laceration Qualifiers: Encounter type: initial encounter Qualified Code(s): S01.01XA - Laceration without foreign body of scalp, initial encounter Condition: Good Instructions: Tetanus Immune Globulin (By injection), Laceration (ED) Additional Instructions: 1. Miladys need to be removed in 7 days. 2. Watch for infection. 3. Return if worse. 4. You have 1 staple in your wound. Please have this removed in 7 days. Referrals: NONE *PRIMARY CARE P,. [Primary Care Provider] - As per Instructions
[2018-09-25] MEDS ORDERED: TDAP ADULT 0.5 ML INJ (BOOSTRIX) IM ONE (14:58)
== END 2018-09-25 15:34 | disposition home or self-care (01) ==
PROC: 0HQ0XZZ Repair Scalp Skin, External Approach (ICD-10-PCS; principal; 2018-09-25)
DX: S01.01XA Laceration without foreign body of scalp, initial encounter (principal); W22.09XA Striking against other stationary object, initial encounter; Y93.E9 Activity, other interior property and clothing maintenance; Z23 Encounter for immunization

== ENCOUNTER 2019-02-12 18:21 | Emergency (ER) | payer OTHER, MEDICAID ==
--- NOTE | 2019-02-12 18:51 | EDPHY ---
H & P Stated Complaint: R rib pain s/p tripped and fall at work while pushing shoppin cart Time Seen by Provider: 02/12/19 18:43 HPI/ROS: CHIEF COMPLAINT: Right sided back pain HISTORY OF PRESENT ILLNESS: 38-year-old male presents after a fall with right- sided back pain. 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 He tried to push the carts off a curb and fell backwards, landing on his rt side. c/o moderate rt side mid back pain. No SOB and no other injuries. REVIEW OF SYSTEMS: complete 10 point ROS reviewed and is negative except for the noted elements in the HPI Source: Patient - Personal History Current Tetanus Diphtheria and Acellular Pertussis (TDAP): Unsure - Medical/Surgical History Hx Asthma: No Hx Chronic Respiratory Disease: No Hx Diabetes: No Hx Cardiac Disease: No Hx Renal Disease: No Hx Cirrhosis: No Hx Alcoholism: No Hx HIV/AIDS: No Hx Splenectomy or Spleen Trauma: No Other PMH: R leg surgeries, adenoidectomy. depression - Social History Smoking Status: Never smoked - Physical Exam Exam: General Appearance: Alert, pleasant Head: Atraumatic Eyes: No conjunctival erythema ENT, Mouth: no oral trauma, no bony tenderness Neck: Nontender, range of motion without pain Respiratory: Normal inspection, right lateral chest wall tenderness, lungs clear bilaterally Cardiovascular: Regular rate and rhythm Abdomen: Abdomen is soft and nontender Skin: No lacerations, no abrasions Back: No midline T/L/S tenderness Extremities: Pelvis is stable and nontender Neurological: Alert, nonfocal exam Psychiatric: Mood and affect normal Constitutional: Initial Vital Signs Temperature (C) 36.9 C 02/12/19 18:27 Heart Rate 86 02/12/19 18:27 Respiratory Rate 18 02/12/19 18:27 Blood Pressure 135/90 H 02/12/19 18:27 O2 Sat (%) 94 02/12/19 18:27 O2 Delivery Mode Room Air Allergies/Adverse Reactions: cefaclor [From Ceclor] Allergy (Unknown, Verified 05/26/17 21:03) Rash Home Medications: Medication Instructions Recorded Latuda 09/25/18 Sertraline HCl 09/25/18 Medical Decision Making - Diagnostics Imaging Results: Imaging Impressions Chest X-Ray 02/12/19 18:43 Impression: No acute cardiopulmonary process. Chest x-ray independently reviewed by me reveals no acute disease. No rib fracture or pneumothorax. ED Course/Re-evaluation: This patient presents with right lateral chest pain after a fall. Chest x-ray is unremarkable. Ibuprofen 600 mg orally given. Warning signs discussed. Departure - Departure Disposition: Home, Routine, Self-Care Clinical Impression: Contusion of rib on right side Condition: Good Instructions: Rib Contusion (ED) Additional Instructions: Ibuprofen 600 mg 3 times daily while the pain persists. Referrals: [facility] LANDAVERDE [Other] - As per Instructions Stand Alone Forms: Work Limited Duty
[2019-02-12] MEDS ORDERED: IBUPROFEN 600 MG TAB PO ONE (19:04)
[2019-02-12 19:13] VITALS: BP 134/83
== END 2019-02-12 19:11 | disposition home or self-care (01) ==
DX: S20.211A Contusion of right front wall of thorax, initial encounter (principal); W19.XXXA Unspecified fall, initial encounter; Y99.0 Civilian activity done for income or pay